=== PATIENT | male | born 1955 | race African-American/Black ===

== ENCOUNTER 2017-12-11 21:44 | Emergency (ER) | payer MEDICARE ==
[~2017-12-11] VITALS: Ht 180.3 cm; Wt 80.0 kg
[~2017-12-11 21:44] MED LIST: ATOR40TA PO; FENO54TA PO; GLIP5 PO; GLUCTAB PO; NRSS SQ
[2017-12-11 21:55] VITALS: BP 162/94; PULSE 92; RESP 18; TEMP 98.4; O2SAT 97
--- NOTE | 2017-12-11 22:45 | PD ---
HPI Chief Complaint: Cardiac Complaint Time Seen by Provider: 22:01 Travel History International Travel<30 days: No Contact w/Intl Traveler<30days: No Traveled to known affect area: No History of Present Illness HPI Patient Is a 62-year-old male with diabetes he said last night he vomited 3 times and had diarrhea than lying in bed he felt his heart irregular pausing an irregular and went on all night long. He comes to the ER complaining of irregularity and positive feeling in his chest palpitations.. Patient also reports that he has not been taking his by mouth hyperglycemic med because she' s been low on his fingersticks at home. He reports without his meds his sugars have been between 97 and 127. He has lost weight he said over the last 2 months without intending to ...his main complaint was palpitations and feeling as if his heart was pausing while lying in bed, but he also is complaining of abdominal pain nausea loss of appetite and loss of weight PFSH Past Medical History Arthritis: Yes Cancer: Yes (lymphoma, KIDNEY, PROSTATE) Cardiovascular Problems: Yes High Cholesterol: Yes Chemotherapy: Yes (LAST TREATMENT 2014) Diabetes: Yes Patient Takes Glucophage: Yes (pt states have not taken it for 1 month) Diminished Hearing: No Endocrine: No Genitourinary: Yes (cyst on the left kidney, Renal cell Cancer) Hepatitis: No Hiatal Hernia: No Hypertension: Yes Immune Disorder: No Implanted Vascular Access Dvce: Yes (PORT RIGHT CHEST ) Musculoskeletal: Yes (arthritis in the neck) Neurologic: No Psychiatric: No Reproductive: No Respiratory: No Radiation Therapy: Yes (LAST 10/28/15) Thyroid Disease: No Tetanus Vaccination: Unknown Influenza Vaccination: No Past Surgical History AICD: No Body Medical Devices: infusaport RT CHEST Genitourinary Surgery: Yes (KIDNEY BIOPSY, LEFT KIDNEY REMOVAL) Joint Replacement: No Pacemaker: No Other Surgery: Yes (port placement and removal) Social History Alcohol Use: No Tobacco Use: Yes Substance Use: No Allergies-Medications (Allergen,Severity, Reaction): Coded Allergies: No Known Allergies (Unverified Adverse Reaction, Unknown, 12/11/17) Reported Meds & Prescriptions Reported Meds & Active Scripts Active Atorvastatin 40 mg (Atorvastatin Calcium) 40 Mg Tab 40 Mg PO HS Novolin Regular Insulin Supplemental Scale (Insulin Human Regular) U 100 Inj 1 Units SQ ACHS SLIDING SCALE 30 Days Glipizide 5 Mg Tab 10 Mg PO BIDAC Reported Metformin (Metformin HCl) 500 Mg Tab 500 Mg PO BIDPC Fenofibrate 54 Mg Tab 54 Mg PO DAILY Review of Systems Except as stated in HPI: all other systems reviewed are Neg Cardiovascular: Positive: Palpitations, Irregular Rhythm Gastrointestinal: Positive: Nausea, Abdominal Pain, Loss of Appetite (weight loss) Physical Exam Narrative GENERAL: Nontoxic-appearing awake alert good historian SKIN: Warm and dry. HEAD: Atraumatic. Normocephalic. EYES: Pupils equal and round. No scleral icterus. No injection or drainage. ENT: No nasal bleeding or discharge. Mucous membranes pink and moist. NECK: Trachea midline. No JVD. CARDIOVASCULAR: Regular rate and rhythm. RESPIRATORY: No accessory muscle use. Clear to auscultation. Breath sounds equal bilaterally. GASTROINTESTINAL: Abdomen epigastric+ tender, nondistended. Hepatic and splenic margins not palpable. MUSCULOSKELETAL: Extremities without clubbing, cyanosis, or edema. No obvious deformities. NEUROLOGICAL: Awake and alert. No obvious cranial nerve deficits. Motor grossly within normal limits. Five out of 5 muscle strength in the arms and legs. Normal speech. PSYCHIATRIC: Appropriate mood and affect; insight and judgment normal. Data Data Last Documented VS Vital Signs Date Time Temp Pulse Resp B/P (MAP) Pulse Ox O2 Delivery O2 Flow Rate FiO2 12/12/17 05:05 84 16 148/89 (108) 99 Room Air 12/11/17 21:55 98.4 Orders Orders Electrocardiogram (12/11/17 22:31) Complete Blood Count With Diff (12/11/17 22:31) Comprehensive Metabolic Panel (12/11/17 22:31) Troponin I (12/11/17 22:31) Lipase (12/11/17 22:31) Ua Includes Microscopic (12/11/17 22:31) Chest, Single Ap (12/11/17 22:31) Ct Brain W/O Iv Contrast(Rout) (12/11/17 ) Troponin I (12/12/17 01:35) Sodium Chlorid 0.9% 500 Ml Inj (Ns 500 M (12/12/17 01:45) Famotidine Inj (Pepcid Inj) (12/12/17 01:45) Ct Abd/Pel W Iv Contrast(Rout) (12/12/17 ) Oral Contrast - Adult (12/12/17 02:24) Blood Glucose (12/12/17 02:28) Diatrizoate Liq (Md Nichole Liq) (12/12/17 02:47) Iodixanol 320 Inj (Rad Ct) (Visipaque 32 (12/12/17 04:43) Ed Discharge Order (12/12/17 05:41) Labs Laboratory Tests Test 12/11/17 22:45 12/12/17 01:45 White Blood Count 9.3 TH/MM3 Red Blood Count 4.62 MIL/MM3 Hemoglobin 14.7 GM/DL Hematocrit 42.2 % Mean Corpuscular Volume 91.4 FL Mean Corpuscular Hemoglobin 31.9 PG Mean Corpuscular Hemoglobin Concent 34.9 % Red Cell Distribution Width 15.2 % Platelet Count 244 TH/MM3 Mean Platelet Volume 8.0 FL Neutrophils (%) (Auto) 69.4 % Lymphocytes (%) (Auto) 19.1 % Monocytes (%) (Auto) 10.1 % Eosinophils (%) (Auto) 1.1 % Basophils (%) (Auto) 0.3 % Neutrophils # (Auto) 6.4 TH/MM3 Lymphocytes # (Auto) 1.8 TH/MM3 Monocytes # (Auto) 0.9 TH/MM3 Eosinophils # (Auto) 0.1 TH/MM3 Basophils # (Auto) 0.0 TH/MM3 CBC Comment DIFF FINAL Differential Comment Urine Color LIGHT-YELLOW Urine Turbidity CLEAR Urine pH 5.0 Urine Specific [place] 1.005 Urine Protein TRACE mg/dL Urine Glucose (UA) NEG mg/dL Urine Ketones NEG mg/dL Urine Occult Blood NEG Urine Nitrite NEG Urine Bilirubin NEG Urine Urobilinogen LESS THAN 2.0 MG/DL Urine Leukocyte Esterase NEG Urine WBC LESS THAN 1 /hpf Blood Urea Nitrogen 18 MG/DL Creatinine 1.64 MG/DL Random Glucose 124 MG/DL Total Protein 8.0 GM/DL Albumin 3.9 GM/DL Calcium Level 9.2 MG/DL Alkaline Phosphatase 91 U/L Aspartate Amino Transf (AST/SGOT) 18 U/L Alanine Aminotransferase (ALT/SGPT) 22 U/L Total Bilirubin 0.5 MG/DL Sodium Level 136 MEQ/L Potassium Level 3.7 MEQ/L Chloride Level 99 MEQ/L Carbon Dioxide Level 28.5 MEQ/L Anion Gap 9 MEQ/L Estimat Glomerular Filtration Rate 52 ML/MIN Troponin I LESS THAN 0.02 NG/ML LESS THAN 0.02 NG/ML Lipase 176 U/L MDM Medical Decision Making Medical Screen Exam Complete: Yes Emergency Medical Condition: Yes Interpretation(s) EKG is normal sinus rhythm with no ectopy and no ST elevations or depressions at her normal sinus rate of 90 bpm Differential Diagnosis Palpitations versus benign arrhythmia versus PACs versus PVCs. Versus anxiety versus epigastric heart reflux stimulating his arrhythmia other Narrative Course Patient is given Pepcid IV he is EKG is normal sinus rhythm no ectopy is seen however when he arrives there is a few PVCs on his monitor. Patient's troponin is negative 2 all studies are negative Pepcid IV and a CAT scan just to rule out any kind of mass causing his weight loss and then he will be discharged after his 2 troponins are negative Diagnosis Primary Impression: Palpitations Additional Impression: Intermittent palpitations Patient Instructions: General Instructions, Heart Palpitations (ED) Disposition: 01 DISCHARGE HOME Condition: Good Arnav Rowland MD Dec 11, 2017 22:45
[2017-12-11 23:05] LABS: AUTOMATED NEUTROPHIL # 6.4 TH/MM3 (1.8-7.7); BASOPHIL % 0.3 % (0.0-2.0); BILIRUBIN, URINE NEG (NEG); BLOOD, URINE NEG (NEG); EOSINOPHIL # 0.1 TH/MM3 (0-0.4); EOSINOPHIL % 1.1 % (0.0-4.0); GLUCOSE,URINE NEG (NEG); HEMATOCRIT 42.2 % (39.0-51.0); HEMOGLOBIN 14.7 GM/DL (13.0-17.0); KETONE, URINE NEG (NEG); LYMPH % 19.1 % (9.0-44.0); LYMPHOCYTE # 1.8 TH/MM3 (1.0-4.8); MEAN CELL VOLUME 91.4 FL (80.0-100.0); MEAN CORPUSCULAR HEMOGLOBIN 31.9 PG (27.0-34.0); MEAN CORPUSCULAR HGB CONC 34.9 % (32.0-36.0); MONO % 10.1 % (0.0-8.0); MONOCYTE # 0.9 TH/MM3 (0-0.9); NEUT % 69.4 % (16.0-70.0); NITRITE,URINE NEG (NEG); PLATELET COUNT 244 TH/MM3 (150-450); RED BLOOD COUNT 4.62 MIL/MM3 (4.50-5.90); RED CELL DISTRIBUTION WIDTH 15.2 % (11.6-17.2); URINE COLOR LIGHT-YELLOW (YELLW/STRAW); URINE LEUKOCYTE ESTERASE NEG (NEG); WHITE BLOOD COUNT 9.3 TH/MM3 (4.0-11.0)
--- NOTE | 2017-12-11 23:07 | RADRPT ---
EXAM DATE/TIME: 12/11/2017 22:51 [facility] COMPARISON: CHEST SINGLE AP, October 31, 2015, 18:18. INDICATIONS : Chest pain. MEDICAL HISTORY : Lymphoma. Carcinoma,renal. SURGICAL HISTORY : Port placement. ENCOUNTER: Initial ACUITY: 1 day PAIN SCORE: 5/10 LOCATION: Bilateral chest FINDINGS: A single view of the chest demonstrates the lungs to be symmetrically aerated without evidence of mas s, infiltrate or effusion. The cardiomediastinal contours are unremarkable. Osseous structures are intact. CONCLUSION: 1. No acute cardiopulmonary disease. Taye Mcclellan MD on December 11, 2017 at 23:06 Board Certified Radiologist. This report was verified electronically.
[2017-12-11 23:27] LABS: ALBUMIN 3.9 GM/DL (3.4-5.0); ALT (GPT) 22 U/L (12-78); AST (GOT) 18 U/L (15-37); BICARBONATE 28.5 MEQ/L (21.0-32.0); BLOOD UREA NITROGEN 18 MG/DL (7-18); CALCIUM 9.2 MG/DL (8.5-10.1); CHLORIDE 99 MEQ/L (98-107); CREATININE 1.64 MG/DL (0.60-1.30); GLOMERULAR FILTRATION RATE 52 ML/MIN (>89); GLUCOSE,RANDOM 124 MG/DL (74-106); SODIUM (NA) 136 MEQ/L (136-145)
[2017-12-11 23:30] LABS: ALKALINE PHOSPHATASE 91 U/L (45-117); TOTAL BILIRUBIN ADULT 0.5 MG/DL (0.2-1.0); TROPONIN I LESS THAN 0.02 NG/ML (0.02-0.05)
--- NOTE | 2017-12-12 00:19 | RADRPT ---
EXAM DATE/TIME: 12/11/2017 23:57 [facility] COMPARISON: No previous studies available for comparison. INDICATIONS : Altered mental status. RADIATION DOSE: 56.35 CTDIvol (mGy) MEDICAL HISTORY : Hypertension. Carcinoma, prostate. Lymphoma.Renal cell carcinoma. SURGICAL HISTORY : None. ENCOUNTER: Initial ACUITY: 1 day PAIN SCALE: 0/10 LOCATION: cranial TECHNIQUE: Multiple contiguous axial images were obtained of the head. Using automated exposure control and adj ustment of the mA and/or kV according to patient size, radiation dose was kept as low as reasonably a chievable to obtain optimal diagnostic quality images. DICOM format image data is available electro nically for review and comparison. FINDINGS: CEREBRUM: Mild diffuse cerebral volume loss. The ventricles are normal for degree of atrophy. No evidence of m idline shift, mass lesion, hemorrhage or acute infarction. No extra-axial fluid collections are seen . POSTERIOR FOSSA: The cerebellum and brainstem are intact. The 4th ventricle is midline. The cerebellopontine angle i s unremarkable. EXTRACRANIAL: The visualized portion of the orbits is intact. SKULL: The calvaria is intact. No evidence of skull fracture. CONCLUSION: 1. No acute intracranial abnormality. Taye Mcclellan MD on December 12, 2017 at 0:17 Board Certified Radiologist. This report was verified electronically.
[2017-12-12 01:43] VITALS: BP 160/85; PULSE 87; RESP 16; O2SAT 98
[2017-12-12] MEDS ORDERED: SODIUM CHLORID 0.9% 500 ML INJ 500 ML IV ONE (01:45)
[2017-12-12] MEDS ORDERED: FAMOTIDINE 20 MG/2 ML VIAL IV PUSH SCH (01:45)
[2017-12-12] MEDS ORDERED: DIATRIZOATE MEGLUM/DIATRIZOATE SOD 9 ML CUP ONE (02:47)
[2017-12-12] MEDS ORDERED: IODIXANOL 320 MG/ML 10 ML VIAL (for Rad CT) IVCONTRAST ONE (04:43)
[2017-12-12 05:05] VITALS: BP 148/89; PULSE 84; RESP 16; O2SAT 99
--- NOTE | 2017-12-12 05:09 | RADRPT ---
EXAM DATE/TIME: 12/12/2017 04:37 [facility] COMPARISON: CT ABDOMEN & PELVIS W CONTRAST, December 28, 2013, 13:38. CT ABDOMEN & PELVIS W CONTRAST, December 05, 2015, 14:32. INDICATIONS : Abdominal pain, vomiting and diarrhea. Evaluate for possible mets to colon. IV CONTRAST: 50 cc Visipaque (iodixanol) IV ORAL CONTRAST: Prescribed oral contrast ingested. RADIATION DOSE: 6.64 CTDIvol (mGy) MEDICAL HISTORY : Hypertension. Lymphoma. Carcinoma, prostate.Renal cell carcinoma. SURGICAL HISTORY : Nephrectomy, left. ENCOUNTER: Initial ACUITY: 2 days PAIN SCALE: 5/10 LOCATION: Abdomen. TECHNIQUE: Volumetric scanning of the abdomen and pelvis was performed. Using automated exposure control and ad justment of the mA and/or kV according to patient size, radiation dose was kept as low as reasonably achievable to obtain optimal diagnostic quality images. DICOM format image data is available electro nically for review and comparison. FINDINGS: LOWER LUNGS: Minimal groundglass opacities in the right lung base. LIVER: Stable subcentimeter hypodense lesion in segment 2 of the liver. Liver is otherwise normal in appeara nce. No calcified gallstones. SPLEEN: Normal size without lesion. PANCREAS: Within normal limits. KIDNEYS: Status post left nephrectomy. No significant mass in the nephrectomy bed. Right kidney demonstrates u niform enhancement without evidence for radiopaque renal calculi or hydronephrosis. ADRENAL GLANDS: Stable 1.6 cm right adrenal mass with indeterminate density. VASCULAR: There is no aortic aneurysm. BOWEL/MESENTERY: The stomach, small bowel, and colon demonstrate no acute abnormality. Mild colonic diverticulosis. N ormal appendix. There is no free intraperitoneal air or fluid. ABDOMINAL WALL: Within normal limits. RETROPERITONEUM: There is no lymphadenopathy. BLADDER: No wall thickening or mass. REPRODUCTIVE: Prostate markers in place. INGUINAL: There is no lymphadenopathy or hernia. MUSCULOSKELETAL: Degenerative spondylosis of the lower lumbar spine most prominently at L5-S1. No abnormal lytic or bl astic bony lesions. CONCLUSION: 1. No acute CT abnormality knee abdomen or pelvis. 2. Status post left nephrectomy without mass in the nephrectomy bed. 3. Stable 1.6 cm right adrenal mass. Although indeterminate in density, interval 4 year stability is consistent with a benign etiology. 4. Normal appendix. 5. Minimal colonic diverticulosis. Taye Mcclellan MD on December 12, 2017 at 5:01 Board Certified Radiologist. This report was verified electronically.
--- NOTE | 2017-12-12 11:39 | EKG ---
Date Performed: 12/11/2017 Time Performed: 22:05:46 PTAGE: 62 years EKG: Sinus rhythm POSSIBLE LEFT ATRIAL ENLARGEMENT BORDERLINE ECG Since the prior tracing, there has been no significa nt change PREVIOUS TRACING : 10/31/2015 18.10 DOCTOR: Katerin Haro Interpretating Date/Time 12/12/2017 11:36:30
== END 2017-12-12 06:25 | disposition home or self-care (01) ==
LOC: NEPE 21:44
DX: R00.2 Palpitations (principal); M19.90 Unspecified osteoarthritis, unspecified site; E78.00 Pure hypercholesterolemia, unspecified; E11.9 Type 2 diabetes mellitus without complications; I10 Essential (primary) hypertension; Z85.72 Personal history of non-Hodgkin lymphomas; Z85.528 Personal history of other malignant neoplasm of kidney; Z85.46 Personal history of malignant neoplasm of prostate; Z72.0 Tobacco use
CPT/HCPCS: 70450; 71045; 74177; 80053; 81001; 83690; 84484; 85025; 93005; 96374; 99285; J7040; Q9963; Q9967